=== PATIENT | male | born 1980 | race Caucasian/White ===

== ENCOUNTER 2021-03-25 06:34 | Day surgery (SDC) | payer BC ==
[2021-03-19 11:21] VITALS: BMI 24.3
[2021-03-25] MEDS ORDERED: VANCOMYCIN 1,000 MG VIAL (RESTRICTED TO ID ONLY) ONE (07:16)
[2021-03-25] MEDS ORDERED: BUPIVACAINE HCL/PF 2.5 MG/ML - 30 ML VIAL IJ ONE (07:16)
[2021-03-25] MEDS ORDERED: EPINEPHrine/PF 1 MG/1 ML (1:1,000) AMPULE ONE (07:16)
[2021-03-25] MEDS ORDERED: MIDAZOLAM HCL 2 MG/2 ML SINGLE DOSE VIAL ONE ×2 (07:31→07:34)
[2021-03-25] MEDS ORDERED: SODIUM CHLORIDE 0.9% P/F 10 ML VIAL IJ ONE (07:31)
[2021-03-25] MEDS ORDERED: BUPIVACAINE HCL/PF 0.5% (5MG/ML) 10 ML VIAL ONE (07:31)
[2021-03-25] MEDS ORDERED: BUPIVACAINE LIPOSOME/PF (EXPAREL) 266 MG/20 ML VIAL ONE (07:31)
[2021-03-25] MEDS ORDERED: PROPOFOL 20 ML ONE ×3 (07:48)
[2021-03-25] MEDS ORDERED: fentaNYL CITRATE 250 MCG/5 ML VIAL ONE (07:48)
[2021-03-25] MEDS ORDERED: SUCCINYLCHOLINE CHLORIDE 200 MG/10 ML SYRINGE ONE (07:50)
[2021-03-25] MEDS ORDERED: ceFAZolin SODIUM 1 GM VIAL ONE ×2 (07:56→07:59)
[2021-03-25] MEDS ORDERED: TRANEXAMIC ACID 1000 MG/10 ML VIAL ONE (07:56)
[2021-03-25] MEDS ORDERED: KETOROLAC TROMETHAMINE 30 MG/1 ML VIAL ONE (07:59)
[2021-03-25] MEDS ORDERED: DEXAMETHASONE SOD PHOSPHATE 4 MG/1 ML VIAL ONE (07:59)
[2021-03-25] MEDS ORDERED: ONDANSETRON 4 MG/2 ML VIAL ONE (07:59)
[2021-03-25] MEDS ORDERED: GLYCOPYRROLATE 0.2 MG/1 ML VIAL ONE (08:05)
[2021-03-25] MEDS ORDERED: ONDANSETRON 4 MG/2 ML VIAL IVPUSH PRN (11:19)
[2021-03-25] MEDS ORDERED: PROMETHAZINE HCL 25 MG/1 ML VIAL IVPUSH PRN (11:19)
[2021-03-25] MEDS ORDERED: oxyCODONE HCL 5 MG TABLET PO PRN ×2 (11:19)
[2021-03-25] MEDS ORDERED: CELECOXIB 200 MG CAPSULE PO ONE (12:39)
[2021-03-25] MEDS ORDERED: ACETAMINOPHEN 1000 MG/100 ML VIAL IVPB ONE (12:39)
[2021-03-25 13:08] VITALS: BP 122/63; PULSE 46; TEMP 97.8
[2021-03-25] MEDS ORDERED: ACETAMINOPHEN INJECTION 100 ML IVPB ONE (13:35)
== END 2021-03-25 13:45 | disposition home or self-care (01) ==
LOC: FASU 06:34
PROVIDERS: ATTEND Orthopaedic Surgery
PROC: 0QSH0ZZ Reposition Left Tibia, Open Approach (ICD-10-PCS; principal; 2021-03-25 08:23)
PROC: 0SBD4ZZ Excision of Left Knee Joint, Percutaneous Endoscopic Approach (ICD-10-PCS; 2021-03-25 08:23)
DX: M17.12 Unilateral primary osteoarthritis, left knee (principal); S83.242A Other tear of medial meniscus, current injury, left knee, initial encounter; X58.XXXA Exposure to other specified factors, initial encounter; Y93.9 Activity, unspecified; Y92.9 Unspecified place or not applicable
CPT/HCPCS: 27705; 29881; C1713; 76000-TC-FY; 94760; J0131

== ENCOUNTER 2023-04-20 08:53 | Day surgery (SDC) | payer BC ==
[2023-04-18 11:41] VITALS: BMI 25.1
[~2023-04-20 08:53] MED LIST: BUPIVACAINE HCL/EPINEPHRINE/PF 30 ML VIAL IJ ONE; VANCOMYCIN 1,000 MG VIAL (RESTRICTED TO ID ONLY) ONE
[2023-04-20] MEDS ORDERED: ceFAZolin SODIUM 1 GM VIAL ONE (09:06)
[2023-04-20] MEDS ORDERED: PROPOFOL 20 ML ONE ×2 (09:07→11:51)
[2023-04-20] MEDS ORDERED: MIDAZOLAM HCL 2 MG/2 ML SINGLE DOSE VIAL ONE ×2 (09:07→10:43)
[2023-04-20] MEDS ORDERED: BUPIVACAINE LIPOSOME/PF (EXPAREL) 266 MG/20 ML VIAL ONE (09:50)
[2023-04-20] MEDS ORDERED: BUPIVACAINE HCL/PF 0.5% (5 MG/ML) 30 ML VIAL IJ ONE (09:50)
[2023-04-20] MEDS ORDERED: ACETAMINOPHEN INJECTION 100 ML IVPB ONE (09:50)
[2023-04-20] MEDS ORDERED: ACETAMINOPHEN 325 MG TABLET (FP) PO PRN (10:11)
[2023-04-20] MEDS ORDERED: ONDANSETRON 4 MG/2 ML VIAL IVPUSH PRN (10:11)
[2023-04-20] MEDS ORDERED: oxyCODONE HCL 5 MG TABLET PO PRN ×2 (10:11)
[2023-04-20] MEDS ORDERED: LACTATED RINGERS SOLUTION 1,000 ML IV SCH (10:15)
[2023-04-20 14:22] VITALS: RESP 18; TEMP 97.3
[2023-04-20 16:44] VITALS: BP 126/70; PULSE 48
== END 2023-04-20 16:44 | disposition home or self-care (01) ==
LOC: FASU 08:53
PROVIDERS: ATTEND Orthopaedic Surgery
PROC: 0SBC4ZZ Excision of Right Knee Joint, Percutaneous Endoscopic Approach (ICD-10-PCS; principal; 2023-04-20 11:12)
PROC: 0Q8G0ZZ Division of Right Tibia, Open Approach (ICD-10-PCS; 2023-04-20 11:12)
DX: M17.11 Unilateral primary osteoarthritis, right knee (principal); S83.241A Other tear of medial meniscus, current injury, right knee, initial encounter; M21.161 Varus deformity, not elsewhere classified, right knee; X58.XXXA Exposure to other specified factors, initial encounter; Y93.9 Activity, unspecified; Y92.9 Unspecified place or not applicable
CPT/HCPCS: 73590-TC-RT-FY; 94760; C1713